=== PATIENT | female | born 1980 | race Caucasian/White ===

== ENCOUNTER 2016-12-28 12:21 | Emergency (ER) | payer OTHER ==
[2016-12-28 12:29] VITALS: BP 120/74; PULSE 76; RESP 18; TEMP 98; O2SAT 98
--- NOTE | 2016-12-28 12:39 | EDPHY ---
H & P Stated Complaint: Lt ing. hernia repair 10days ago - this am incision site redness Time Seen by Provider: 12/28/16 12:39 HPI/ROS: Chief Complaint: Wound check HPI: The patient presents to the ED for wound check. She had repair of left inguinal hernia or performed in [place] approximately 10 days ago. She noticed a small area of redness superior to her abdominal wall incision which prompted her visit today. She denies any significant abdominal pain. She has no complaints of fever. She denies significant medical problems such as diabetes. She has had normal bowel movements and been eating normally without complication. REVIEW OF SYSTEMS: Neuro: no headache, numbness, weakness Musculoskeletal: as above Skin: As above Source: Patient Exam Limitations: No limitations - Personal History Current Tetanus Diphtheria and Acellular Pertussis (TDAP): Yes - Medical/Surgical History Hx Asthma: No Hx Chronic Respiratory Disease: No Hx Diabetes: No Hx Cardiac Disease: No Hx Renal Disease: No Hx Cirrhosis: No Hx Alcoholism: No Hx HIV/AIDS: No Hx Splenectomy or Spleen Trauma: No Other PMH: CHRONE'S,APPY,BOWEL RESECTION/ hernia - Social History Smoking Status: Never smoked - Physical Exam Exam: General: No acute distress Gastrointestinal: Abdomen is soft and nontender, no masses, bowel sounds normal Skin: Surgical incision is clean dry and intact, tissue adhesive overlies the incision. There is a small area approximately 2 mm wide and 2 cm long of focal erythema superior to the incision. There is no evidence of warmth, incisional dehiscence or cellulitis. Constitutional: Initial Vital Signs Temperature (C) 36.6 C 12/28/16 12:26 Heart Rate 76 12/28/16 12:26 Respiratory Rate 18 12/28/16 12:26 Blood Pressure 120/74 12/28/16 12:26 O2 Sat (%) 98 12/28/16 12:26 Allergies/Adverse Reactions: amoxicillin [Amoxicillin] Allergy (Unknown, Verified 10/23/14 07:20) Rash aspirin Allergy (Verified 12/28/16 12:25) dexrazoxane Allergy (Verified 12/28/16 12:26) Medical Decision Making ED Course/Re-evaluation: The patient presents to the ED for a wound check. She has what I would consider normal postoperative changes noted to her skin currently. She is afebrile well-appearing. I have asked the patient to return to the ED should she develop any circumferential erythema greater than 10 mm in width, fever, increasing pain, vomiting or other concerns. Departure - Departure Disposition: Home, Routine, Self-Care Clinical Impression: Visit for wound check Condition: Good Instructions: Care For Your Stitches (ED) Additional Instructions: 1. Please return to the ED for increasing redness greater than 1 cm in width, fever, increasing pain or other concerns. 2. There is no evidence of an obvious postoperative infection based upon your examination today. I believe these are typical postoperative changes your seeing. 3. Please follow up with your general surgeon as scheduled. Referrals: SAM LYNCH [Other] - As per Instructions
== END 2016-12-28 12:57 | disposition home or self-care (01) ==
LOC: CED 12:21
DX: Z48.01 Encounter for change or removal of surgical wound dressing (principal)